=== PATIENT | female | born 1935 | race Caucasian/White ===

== ENCOUNTER 2024-02-06 12:19 | Outpatient (REF) | payer OTHER, SELFPAY ==
--- NOTE | ~2024-02-06 | CT_ITS ---
CT SINUS WITHOUT CONTRAST HISTORY: Vertigo, headache, evaluate sinuses TECHNIQUE: CT images of the paranasal sinuses were acquired without contrast. This CT examination was performed using dose optimization techniques as appropriate, variously including the following: *Automated exposure control *Adjustment of mA and/or kV according to patient size (this includes techniques or standardized protocols for targeted exams where dose is matched to indication/reason for exam; i.e. extremities or head) *Use of iterative reconstruction technique DLP: 87 COMPARISON: None available FINDINGS: NASAL CAVITY: Rightward deviation of the nasal septum with a rightward directed bony spur abutting and deforming the right inferior turbinate. The form plate appears intact. Relatively symmetric lateral lamellae and fovea ethmoidalis. FRONTAL SINUS: Right: Small in caliber. Mild mucosal thickening inferiorly. The outflow tract is patent. Left: Trace mucosal thickening inferiorly. The outflow tract is patent. ETHMOID AIR CELLS: Right: Mild scattered polypoid because of thickening. Left: Mild scattered polypoid mucosal thickening. SPHENOID SINUS: Right: Minimal mucosal thickening near the ostium which is patent. Left: Minimal mucosal thickening near the ostium which is narrowed but patent. MAXILLARY SINUS: Right: Mild mucosal thickening. The outflow tract is patent. Left: Essentially clear. The outflow tract is patent. OTHER: Bilateral intraocular lens replacements. Limited intracranial evaluation demonstrates generalized cerebral volume loss and chronic microvascular ischemic change. Underpneumatized left mastoid tip. There is no significant periodontal disease. CT/CT sinus wo IV con IMPRESSION: Mild scattered paranasal sinus polypoid mucosal thickening. No air-fluid levels to indicate acute sinusitis. Rightward deviation of the nasal septum with a bony spur abutting and deforming the right inferior turbinate.
== END 2024-02-06 12:20 | disposition home or self-care (01) ==
LOC: HO.CT 12:19
PROVIDERS: PCP Internal Medicine; Visit Provider Otolaryngology
DX: H81.4 Vertigo of central origin (principal); G44.219 Episodic tension-type headache, not intractable
CPT/HCPCS: 70486

== ENCOUNTER 2024-11-24 15:13 | Emergency (ER) | payer OTHER, SELFPAY ==
[2024-11-24] VITALS (8 sets, daily range): BP systolic 92–138; BP diastolic 50–70; PULSE 67–89; RESP 14–21; TEMP 36.4–36.7; O2SAT 94–98; BMI 24.5
--- NOTE | ~2024-11-24 | CT_ITS ---
EXAMINATION: CT HEAD WITHOUT CONTRAST CLINICAL INFORMATION: Syncope. COMPARISON: None available. TECHNIQUE: Contiguous axial imaging was performed from the skull base to vertex without intravenous administration of contrast. This CT examination was performed using dose optimization techniques as appropriate, variously including the following: *Automated exposure control *Adjustment of mA and/or kV according to patient size (this includes techniques or standardized protocols for targeted exams where dose is matched to indication/reason for exam; i.e. extremities or head) *Use of iterative reconstruction technique FINDINGS: There is no evidence of intracranial hemorrhage or extra-axial fluid collection. There is no mass effect, or edema. No CT evidence of acute territorial infarct. Ventricles, sulci, and cisterns are somewhat diffusely prominent, in keeping with age-related involutional changes. No hydrocephalus. No midline shift. Negative hyperdense MCA sign. Negative insular ribbon sign. Patchy periventricular and deep white matter hypoattenuation is consistent with mild to moderate small vessel ischemic changes. 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 Globes and orbital contents image normally. There are bilateral lens replacements. No extracranial soft tissue abnormalities. The paranasal sinuses, mastoid air cells, and tympanic cavities are normally aerated. No suspicious bony abnormalities. There are no acute fractures evident. CT/CT head/brain wo IV con IMPRESSION: No acute intracranial abnormalities. Chronic changes. Electronically signed by: Adalberto Zambrano MD 11/24/2024 04:42 PM [facility]
--- NOTE | ~2024-11-24 | XR_ITS ---
EXAMINATION: XR CHEST CLINICAL INFORMATION: syncope COMPARISON: None available. TECHNIQUE: Frontal view of the chest was obtained. FINDINGS: The cardiac, hilar, and mediastinal contours are normal. Aortic mural calcification. There is a moderate size retrocardiac hiatus hernia. Lungs demonstrate minimal linear type atelectasis left base. Lungs otherwise clear. No pneumothorax or effusion. No focal osseous or soft tissue abnormality. XR/XR chest 1V IMPRESSION: No active pulmonary disease. Retrocardiac hiatus hernia. Electronically signed by: Adalberto Zambrano MD 11/24/2024 04:16 PM EST
--- NOTE | 2024-11-24 15:23 | ECG_ITS ---
Test Reason : near syncopal episodde Blood Pressure : */* mmHG Vent. Rate : 75 BPM Atrial Rate : 75 BPM P-R Int : 218 ms QRS Dur : 96 ms QT Int : 408 ms P-R-T Axes : 64 51 18 degrees QTcB Int : 455 ms Sinus rhythm with 1st degree A-V block Nonspecific T wave abnormality Abnormal ECG When compared with ECG of 09-Sep-2004 11:47, Nonspecific T wave abnormality now evident in Anterior leads Referred By: Generic ED Physician Electronically Signed By: Zac Baron
[2024-11-24 15:44] LABS: Glucose, Whole Blood 158 mg/dL (60-115)
--- NOTE | 2024-11-24 15:49 | ED_ITS ---
HPI - Syncope General Chief Complaint: Syncope Stated Complaint: syncopal episode, feels weak, diaphoretic Time Seen by Provider: 11/24/24 15:38 Source: patient, family and EMS Mode of arrival: EMS Limitations: no limitations History of Present Illness ED Provider: DR. Garvin HPI narrative: 89-year-old female brought in by EMS for evaluation of near syncopal episode. Patient without with eating lunch at [employer] and glass of wine patient felt fine, then patient felt clammy, lightheadedness, blurry vision, patient needed to sit down before complete pass out, no CP, no SOB. Patient declined a complete pass out. Patient still feel spacey and disoriented. No blurry vision, no double vision, no weakness, no numbness. Report no decreased p.o. intake. Related Data Allergies Allergy/AdvReac Type Severity Reaction Status Date / Time Sulfa (Sulfonamide Allergy Unknown Unknown Verified 11/24/24 15:27 Antibiotics) Doxycycline (Rosacea) Allergy Unknown Unknown Uncoded 11/24/24 15:27 Review of Systems 2 Review of Systems: All other systems are reviewed and are negative Constitutional: Reports as per HPI and Reports no additional constitutional complaints Eyes: Reports as per HPI and Reports no additional eye complaints Reports system reviewed and no additional complaints, except as documented Cardiovascular: Reports as per HPI and Reports no additional cardiovascular complaints Respiratory: Reports as per HPI and Reports no additional respiratory complaints Gastrointestinal: Reports as per HPI and Reports no additional gastrointestinal complaints Genitourinary: Reports no additional female genitourinary complaints Musculoskeletal: Reports no additional musculoskeletal complaints Skin/Breast: Reports system reviewed and no additional complaints, except as docu Psychiatric: Reports no additional psychiatric complaints Endocrine: Reports no additional endocrine complaints Hematologic/Lymphatic: Reports no additional hematologic/lymphatic complaints Allergic/Immunologic: Reports no additional allergic/immunologic complaints Reports system reviewed and no additional complaints, except as documented and Reports Abnormal speech present [facility] Social History Social History Advance Directives: No Advance Directives Information Provided: No Do you have a plan to hurt others: No Plan Physical Exam 2 Vital Signs: Vital Signs: Last Vital Signs Temp 98.0 F 11/24/24 19:24 Pulse 67 11/24/24 19:24 Resp 16 11/24/24 19:24 BP 120/66 11/24/24 19:24 Pulse Ox 98 11/24/24 19:24 O2 Del Method Room Air 11/24/24 19:24 BMI result Body Mass Index 24.5 Vital signs have been reviewed and appear to be correct. Blood pressure elevated. Heart rate normal. Respiratory rate normal. Temperature normal. Oxygen saturation normal. Appearance: Alert. Oriented X3. No acute distress. Head: Normal external exam. Normocephalic. Atraumatic. No [place] signs noted. No raccoon eyes noted Eyes: PERRLA. EOMI. Conjunctiva and sclera normal. Eyelids normal. ENT: TM's Normal. Pharynx normal. Uvula midline. Moist mucous membranes. No trismus noted. No drooling noted. No muffled voice noted. Neck: Normal inspection. Neck supple. FROM. No adenopathy. Thyroid Normal. No meningeal signs. No neck mass noted. CVS: Normal heart rate and rhythm. Heart sound normal. No murmurs noted. Pulses normal throughout. Respiratory: No respiratory distress. Painless inspiration. Breath sounds normal. No wheezes/rales/rhonchi noted. Chest nontender. No accessory muscle usage noted or decreased air movement noted. Abdomen: Soft and nontender. Bowel sounds normal in all 4 quadrants. No distention noted. No organomegaly noted. No visible injury noted. Back: No CVA tenderness. Full range of motion noted. Skin: Skin warm and dry. Normal skin color. Normal skin turgor. No rashes/lesions/lacerations noted. Extremities: No lower extremity edema. Extremities exhibit normal range of motion. Extremities nontender. Neuro: Mental status: Normal attention, orientation, memory, and affect. Cranial nerves: Pupils are equal, round and reactive to light, EOMI, visual [place] are fall, face is symmetric, facial sensations are normal. Motor examination normal muscle tone, strength to 4 extremities. DTR are +2, planter's are flexor. Sensory exam; normal coordination, no ataxia, gait stable. Cerebellar exam: [id number] and [id number] is normal. Extrapyramidal system: No tremors, no rigidity with normal facial expressions. Pronator drift not present Course Reevaluation(s) Reevaluation #1: moderately orthostatic, patient feels much better and back to her normal baseline after was given a L of fluid in the emergency department, unremarkable labs, unremarkable EKG, patient was instructed to follow-up with her PCP and to drink plenty of fluids. Patient been in the ED for about 6 hours initially had borderline low blood pressure after fluid blood pressure is been better, neuro exam is intact, GCS of 15, head CT is unremarkable. Time: 20:12 Medications Administered Discontinued Medications Generic Name Dose Route Start Last Admin Trade Name Freq PRN Reason Stop Dose Admin Sodium Chloride 1,000 mls @ 999 mls/hr 11/24/24 18:36 11/24/24 18:47 Ns IV 11/24/24 19:36 999 mls/hr .Q1H1M ONE Administration Medical Decision Making Differential Diagnosis Differential Diagnoses: The differential diagnosis associated with the presentation includes ( ACS, intracranial bleed, dehydration, orthostatic hypotension, dysrhythmia, electrolyte derangement, severe anemia , pneumonia, pneumothorax, pleural effusion, intracranial bleed, ischemic stroke.) Admission/Observation Consideration of admission/observation: Escalation of care including admission/observation considered Lab Data MDM Lab Attestation statement: I reviewed the patient's lab results. 11/24/24 16:10 11/24/24 16:10 Labs: Lab Results 11/24/24 11/24/24 11/24/24 Range/Units 15:25 16:10 18:43 WBC 6.9 (4.8-10.8) X10*3/uL RBC 3.61 L (4.20-5.50) X10*6/uL Hgb 11.0 L (12.0-16.0) g/dl Hct 33.1 L (37.0-47.0) % MCV 91.7 (80.0-98.0) fL MCH 30.5 (27.0-33.0) pg MCHC 33.2 (31.0-35.0) g/dl RDW 13.8 (11.0-16.0) % Plt Count 229 (160-400) X10*3/uL MPV 9.2 L (9.4-12.3) fL Immature Gran % (Auto) 0.4 (0.0-0.4) % Neut % (Auto) 74.3 H (45-73) % Lymph % (Auto) 17.8 L (20-40) % [place] % (Auto) 6.0 (2-11) % Eos % (Auto) 1.2 (0-4) % Baso % (Auto) 0.3 (0-2) % Lymph # (Auto) 1.2 (1.2-4.9) X10*3/uL [place] # (Auto) 0.4 (0.1-1.2) X10*3/uL Eos # (Auto) 0.1 (0.0-0.4) X10*3/uL Baso # (Auto) 0.0 (0.0-0.2) X10*3/uL Abs Immat Gran (auto) 0.03 (0.00-0.03) X10*3/uL Absolute Neuts (auto) 5.1 (2.0-8.3) x10*3/uL Absolute Nucleated RBC 0.000 (0.0-0.012) X10*3/uL Nucleated RBC % (auto) 0.0 (0.0-0.2) /100WBC Sodium 135 (135-145) mmol/L Potassium 3.8 (3.3-5.1) mmol/L Chloride 105 (96-108) mmol/L Carbon Dioxide 22 (22-29) mmol/L Anion Gap 12 (12-20) BUN 13 (9-16) mg/dL Creatinine 0.75 (0.5-1.4) mg/dL Estim Creat Clear Calc 48.5 Estimated GFR > 60 POC Glucose 158 H (60-115) mg/dL Random Glucose 103 (60-115) mg/dL Calcium 8.5 (8.4-10.2) mg/dL Total Bilirubin 0.3 (0.0-1.0) mg/dL Direct Bilirubin 0.1 (0.0-0.5) mg/dL AST 29 (5-31) U/L ALT 24 (0-31) U/L Alkaline Phosphatase 62 (39-117) U/L Troponin I High Sens < 2.7 < 2.7 (<3.5-17.0) ng/L B-Natriuretic Peptide 142 H (<100) pg/mL Total Protein 6.8 (6.5-8.0) g/dL Albumin 3.4 L (3.5-5.0) g/dL Lipase 16 (8-78) U/L Urine Color Yellow Urine Appearance Clear Urine pH 6.5 (5.0-9.0) Ur Specific [place] 1.015 (1.005-1.025) Urine Protein 30 (1+) H (Neg-Trace) mg/dL Urine Glucose (UA) Negative (Negative) mg/dL Urine Ketones Negative (Negative) mg/dL Urine Blood Small (1+) H (Negative) Urine Nitrite Negative (Negative) Ur Leukocyte Esterase Negative (Negative) Urine RBC 6-10 H (0-2) /HPF Urine WBC 0-5 (0-5) /HPF Ur Squamous Epith Cells 0-2 (0-2) /HPF Urine Bacteria None Seen (None Seen) Hyaline Casts 0-2 (0-2) /LPF Influenza Type A (PCR) NEGATIVE (Negative) Influenza Type B (PCR) NEGATIVE (Negative) RSV RNA Qual (PCR) NEGATIVE (Negative) SARS-CoV-2 RNA (RT-PCR) NEGATIVE (Negative) Independent Interpretation I performed an independent interpretation of an: Plain X-Ray ( Chest: No acute intrathoracic pathology.) and CT Scan ( Head: No acute intracranial abnormalities.) Radiology Impression Discussion of test interpretation with radiology: I have reviewed the radiologist's reading. Discharge Plan Discharge Clinical Impression: Vasovagal syncope, Dehydration Patient Disposition: Home, Self-Care Instructions: Dehydration (ED) Additional Instructions: Drink plenty fluids Referrals: Samaria Childs NP [Primary Care Provider] - Print Language: Kazakh
[2024-11-24 16:16] LABS: MANUAL DIFF FLAG NO
[2024-11-24 16:18] LABS: Basophils Percent Auto 0.3 % (0-2); Eosinophils Absolute Auto 0.1 X10*3/uL (0.0-0.4); Eosinophils Percent Auto 1.2 % (0-4); Hematocrit 33.1 % (37.0-47.0); Imm Gran Abs Auto 0.03 X10*3/uL (0.00-0.03); Imm Gran Pct Auto 0.4 % (0.0-0.4); Lymphocytes Absolute Auto 1.2 X10*3/uL (1.2-4.9); Lymphocytes Percent Auto 17.8 % (20-40); Mean Corpuscular HGB Conc 33.2 g/dl (31.0-35.0); Mean Corpuscular Hemoglobin 30.5 pg (27.0-33.0); Mean Corpuscular Volume 91.7 fL (80.0-98.0); Mean Platelet Volume 9.2 fL (9.4-12.3); Monocytes Absolute Auto 0.4 X10*3/uL (0.1-1.2); Neutrophils Absolute Auto 5.1 x10*3/uL (2.0-8.3); Neutrophils Percent Auto 74.3 % (45-73); Platelet Count 229 X10*3/uL (160-400); Red Blood Count 3.61 X10*6/uL (4.20-5.50); Red Cell Distribution Width 13.8 % (11.0-16.0); White Blood Count 6.9 X10*3/uL (4.8-10.8)
[2024-11-24 16:40] LABS: Alanine Aminotransferase 24 U/L (0-31); Albumin Level 3.4 g/dL (3.5-5.0); Anion Gap 12 (12-20); Aspartate Amino Transferase 29 U/L (5-31); Bilirubin Direct 0.1 mg/dL (0.0-0.5); Bilirubin Total 0.3 mg/dL (0.0-1.0); Blood Urea Nitrogen 13 mg/dL (9-16); Calcium 8.5 mg/dL (8.4-10.2); Carbon Dioxide 22 mmol/L (22-29); Chloride 105 mmol/L (96-108); Creatinine Clr Calc Pharmacy 48.5; Estimated Glomerular Filt Rate > 60; Glucose Random 103 mg/dL (60-115); Lipase 16 U/L (8-78); Potassium 3.8 mmol/L (3.3-5.1); Sodium 135 mmol/L (135-145); Total Protein 6.8 g/dL (6.5-8.0)
[2024-11-24 16:41] LABS: B Type Natriuretic Peptide 142 pg/mL (<100); Troponin-I High Sensitivity < 2.7 ng/L (<3.5-17.0)
[2024-11-24 16:54] LABS: Influenza A PCR NEGATIVE (Negative); Influenza B PCR NEGATIVE (Negative); Resp Syncy Virus RNA Qual PCR NEGATIVE (Negative); SARS COV2 PCR INHOUSE NEGATIVE (Negative)
[2024-11-24 17:12] LABS: Alkaline Phosphatase 62 U/L (39-117)
[2024-11-24] MEDS: 0.9 % Sodium Chloride 1,000 ML 999 ML IV (18:47)
[2024-11-24 18:51] LABS: Appearance Urine Clear; Color Urine Yellow; Glucose Urine UA Negative (Negative); Leukocyte Esterase Urine Negative (Negative); Nitrite Urine Negative (Negative); PH 6.5 (5.0-9.0); Specific Gravity - Urine 1.015 (1.005-1.025); UMIC TRIGGER UACC YES; Urine Blood Small (1+) (Negative); Urine Ketones Negative (Negative); Urine Protein 30 (1+) mg/dL (Neg-Trace)
[2024-11-24 18:54] LABS: Bacteria Urine None Seen (None Seen); Hyaline Casts Urine 0-2 /LPF (0-2); Squamous Epithelial Cell Urine 0-2 /HPF (0-2); WBC Urine 0-5 /HPF (0-5)
[2024-11-24 19:13] LABS: Troponin-I High Sensitivity < 2.7 ng/L (<3.5-17.0)
--- OUTSIDE RECORDS SUMMARY | 2024-11-24 19:56 | XMS_ITS | Clinical Summary ---
Author Organization 175 [facility] Address 175 [place] [address] Phone Care Team Providers Care Seat Cover Maker Name Role Phone China Bal MD Primary Care Prov ider Allergies Active Allergy Reactions Criticality Noted Date Comments Doxycycline Monohydrate Nausea And Vomiting 03/2005 Sulfa (Sulfonamide Antibiotics) Nausea And Vomiting 08/06/2005 Sulfa Drugs Sulfamethoxazole-Trimet hoprim Nausea And Vomiting 03/23/2011 Bactrim [Na Benzoate-sulfametho xazole-trimethoprim ] Medications acetaminophen (TYLENOL) 500 mg tablet Take 1 tablet by mouth every 8 hours as needed for Pain. 02/10/20 21 Active calcium carbonate 1,500 mg (600 mg elemental calcium) tablet Take 600 mg by mouth 2 times daily (with meals). Active cholecalcifero l (VITAMIN D-3) 25 mcg (1,000 unit) capsule 1 (one) time each day. Cholecalciferol (VITAMIN D-[address] OR) Take 1,000 Units by mouth. Active esomeprazole (NexIUM) [address] capsule Take 1 Capsule by mouth every morning (before breakfast). 07/30/20 24 Active FLUoxetine (PROzac) 10 mg capsule TAKE 1 CAPSULE DAILY 07/30/20 24 Active levothyroxine (SYNTHROID, LEVOTHROID) 25 mcg tablet Take 1 Tablet by mouth daily. 07/30/20 Active meclizine (ANTIVERT) 12.5 mg tablet TAKE 1 TABLET BY MOUTH EVERY 12 HOURS 07/14/20 24 Active albuterol HFA (PROAIR HFA ; PROVENTIL HFA ; VENTOLIN HFA) 90 mcg/actuation inhaler Inhale 2 puffs by mouth every 6 (six) hours if needed for wheezing. Active Active Problems Problem Noted Date Diagnosed Date Groin pain, chronic, left 09/08/2024 Reducible left inguinal hernia 09/08/2024 Contusion of lower leg 03/26/2024 Fibromyalgia 09/03/2017 Osteopenia 07/12/2015 Hypothyroid 08/21/2010 Lactose intolerance 03/15/2008 Mixed hyperlipidemia 03/15/2008 Overview (08/25/2024): Not on meds as of September 2020 Heartburn 07/22/2007 Encounters Date Type Department Care Team Description 11/12/2024 10:30 AM EST Consult Orthopedic Surgery [facility] [address] [facility] [address] [place] [phone] Cristal Zepeda NP Primary osteoarthritis of left hip (Primary Dx); Groin pain, chronic, left 10/13/2024 10:45 AM EST Office Visit General Surgery [facility] 175 [facility] [address] [place] [phone] Paddy Delcid MD Reducible left inguinal hernia (Primary Dx); Groin pain, chronic, left 09/28/2024 3:59 PM EST Anesthesia Event [facility] OR [address] [place] [phone] Codey Bryan MD Spencer, Mark A, MD 09/28/2024 1:45 PM EST - 09/28/2024 3:00 PM EST Surgery [facility] OR [address] [place] [phone] Paddy Delcid MD REPAIR INGUINAL HERNIA LEFT [19900 (CPT??)] 09/28/2024 11:43 AM EST - 09/28/2024 6:44 PM EST Hospital Encounter [facility] [place] [address] [place] [phone] Paddy Delcid MD Discharge Disposition: Home or Self Care 09/21/2024 Telephone General Surgery - [place] [address] [facility] [address] [place] [phone] Paddy Delcid MD Prior Authorization (09/28/24 Dr. Paddy Delcid) 09/08/2024 11:00 AM EST Consult General Surgery - [place] [address] [facility] [address] [place] [phone] Paddy Delcid MD Groin pain, chronic, left (Primary Dx); Reducible left inguinal hernia 09/03/2024 12:34 PM EST - 09/03/2024 11:59 PM EST Hospital Encounter Radiology Department [address] [phone] Encounter for screening mammogram for breast cancer Discharge Disposition: Home or Self Care from Last 3 Months Immunizations Name Administration Dates Next Due Influenza trivalent, 0.5mL ( Fluad) 65yo and older 07/30/2024,07/23/2023,06/12/2021,07/21,07/08/2018,07/24/2017,07/04/2016 Influenza trivalent, 0.5mL, preservative free (Fluarix; FluLaval; Fluzone) ages 6mo and older (Afluria) 3 years and older 06/20/2020,06/27/2015,07/27/2014,07/13,06/10/2012,06/30/2011,07/13/2010 ,07/22/2007,10/18/2006,08/04/2005 Influenza, Unspecified 07/04/2022,2019,07/08/2018,07/04 Pfizer SARS-CoV-2 COVID-19, mRNA, LNP-S, preservative free 06/24/2021 Pneumococcal conjugate 13 va lent (Prevnar 13, PCV13) 2mo and older 12/23/2014 Pneumococcal polysaccharide 23 valent (Pneumovax 23) 2yo and older 02/14/2009 Td Tetanus diptheria (Tdvax) 7yo and older 02/14/2009 Surgical History Surgery Date Site/Laterality Comments CATARACT EXTRACTION 2005 PROCEDURE: HISTORICAL CATARACT REMOVAL; COMMENT: bilateral ANKLE FRACTURE SURGERY 2004 Left PROCEDURE: KS OPEN TREATMENT MEDIAL MALLEOLUS FRACTURE; COMMENT: pinned APPENDECTOMY PROCEDURE: KS APPENDECTOMY OTHER SURGICAL HISTORY PROCEDURE: HISTORY OTHER; COMMENT: hand surgery ear surg OTHER SURGICAL HISTORY PROCEDURE: KS TOTAL ABDOMINAL HYSTERECT W/WO RMVL TUBE OVARY; COMMENT: ovaries also removed OTHER SURGICAL HISTORY 1996 PROCEDURE: HISTORICAL MELANOMA; COMMENT: 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) OTHER SURGICAL HISTORY PROCEDURE: HISTORY OTHER; COMMENT: left shoulder fracture COLONOSCOPY 2015 PROCEDURE: HISTORICAL COLONOSCOPY; COMMENT: neg dr egan UPPER GASTROINTESTINAL ENDOSCOPY 2015 PROCEDURE: KS UPPER GI ENDOSCOPY PERFORMED; COMMENT: Gaby egan OTHER SURGICAL HISTORY PROCEDURE: HISTORICAL CA BASAL CELL; COMMENT: BCC 10/16 right shoulder (nodular) 03/10 left pretibial (nodular) 09/05 left pretibial area (superficial) HERNIA REPAIR HYSTERECTOMY Medical History Medical History Date Comments Heartburn 07/22/2007 DX:Heartburn Lactose intolerance 03/15/2008 DX:Lactose i ntolerance Fracture, humerus closed 2004 DX:Frac ture, humerus closed; COMMENT: left Osteopenia 07/12/2015 DX:Osteopenia Basal cell carcinoma of skin 09/24/2007 DX: Basal cell carcinoma of skin; COMMENT: BCC 10/16 right shoulder (nodular) 03/10 left pretibial (nodular) 09/05 left pretibial area (superficial) History of malignant melanoma of skin 03/12/2006 DX:History of malignant melanoma of skin; COMMENT: 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), followed by [facility] History of actinic keratoses 05/23/2016 DX: History of actinic keratoses; COMMENT: Actinic keratosis 05/15 left leg Hypothyroidism GERD (gastroesophageal reflux disease) HL (hearing loss) Asthma Family History Medical History Relation Name Comments Breast cancer Neg Hx Relation Name Status Comments Brother (Age 51) brain canc er Father (Age 69) hodgkins Mother (Age 81) colon canc er Social History Tobacco Use Types Packs/Day Years Used Date Smoking Tobacco: Former Cigarettes Q uit: 09/30/1979 Smokeless Tobacco: Never Alcohol Use Standard Drinks/Week Comments Yes 0 (1 standard drink = 0.6 oz pur e alcohol) SOCIAL Interpersonal Safety Answer Date Record ed Physical Abuse 09/28/2024 Verbal Abuse 09/28/2024 Comments No Sex and Gender Information Value Date Recorded Sex Assigned at Unknown 09/14/2024 3:53 PM EST Legal Sex Female 5:26 AM EST Gender Identity Female 09/14/2024 3:53 PM EST Sexual Orientation Straight 09/14/2024 3: 53 PM EST Obstetrics History Para Term AB IAB SAB Ectopic Multiple Livin g Live Births 2 2 2 2 Date Outcome GA Total Labor Labor/2nd/3rd Weight Sex Type Anes PTL Nancy A1 A5 Name Clin Term Term Last Filed Vital Signs Vital Sign Reading Time Taken Comments Blood Pressure 133/81 10/13/2024 10:31 AM EST Pulse 77 10/13/2024 10:31 AM EST Temperature 36.5 ??C (97.7 ??F) 09/28/2024 6:11 PM ES T Respiratory Rate 14 09/28/2024 6:11 PM EST Oxygen Saturation 96% 09/28/2024 6:11 PM EST Inhaled Oxygen Concentration - - Weight 68.9 kg (152 lb) 11/12/2024 10:20 AM EST Height 170.2 cm (5' 7 ) 11/12/2024 10:20 AM EST Body Mass Index 23.81 11/12/2024 10:20 AM EST Plan of Treatment Upcoming Encounters Date Type Department Care Team (Late st Contact Info) Description 01/19/2025 10:15 AM EDT Office Visit General Surgery [facility] [address] [phone] Paddy Delcid MD [address] [phone] 01/28/2025 11:00 AM EDT Office Visit Adult Medicine [facility] [address] [place] [phone] China Bal MD [address] [place] [phone] 06/07/2025 7:45 AM EDT Ancillary Procedure [facility] [address] [phone] Health Maintenance Due Date Last Done Comments RSV Immunization Patients 60+ Years Old (1 - 1-dose 75+ series) 2011 DTaP,Tdap,and Td Vaccines (2 - Td or Tdap) 02/14/2019 02/14/2009 Medicare Annual Wellness Visit 09/08/2022 Social Influencers of Health Screening 09/08/2022 COVID-19 Vaccine ( season) 2024 08/14/2023, 07/04/2022, 12/30/2021, Additional history exists Zoster Vaccines (2 of 2) 10/01/2024 08/06/2024 Falls Risk Assessment 01/22/2025 01/23/2024 Depression Screening 07/30/2025 07/30/2024 Cholesterol Screening (Lipid Panel) 01/13/2029 01/14/2024 Osteoporosis Screening (Bone Density Screening) 07/21/2034 07/21/2024, 07/21/2024, 06/06/2021 Pneumococcal Vaccine: 50+ Years Completed 12/23/2014, 02/14/2009 Influenza Vaccine Completed 07/30/2024, , 07/04/2022, Additional history exists HIB Vaccines Aged Out No longer eligi ble based on patient's age to complete this topic HPV Vaccines Aged Out No longer eligi ble based on patient's age to complete this topic Hepatitis A Vaccines Aged Out No long er eligible based on patient's age to complete this topic Hepatitis B Vaccines Aged Out No long er eligible based on patient's age to complete this topic IPV Vaccines Aged Out No longer eligi ble based on patient's age to complete this topic MMR Vaccines Aged Out No longer eligi ble based on patient's age to complete this topic Meningococcal ACWY Vaccine Aged Out N o longer eligible based on patient's age to complete this topic Meningococcal B Vacine Aged Out No lo nger eligible based on patient's age to complete this topic RSV Immunization Patients Under 20 months Aged Out No longer eligible based on patient's age to complete this topic Varicella Vaccines Aged Out No longer eligible based on patient's age to complete this topic Medical Devices Implanted Type Area Sr. Payroll Processor Device Identifier Shelf Expiration Date Model / Serial / Lot Opthalmology Implants Opthalmology Implants Bilateral : Eye System Hernia Ultrapro Med - Sn/A - [id number] Implanted:Qty: 1 on 09/28/2024 by Paddy Delcid MD at [facility] Surgical Mesh Sling Implants Left: Abdomen [employer] 09/29/2025 [facility] / N/A / [id number] Procedures Procedure Name Priority Date/Time Associated Diagnosis Comments XR HIP 2-3 VIEWS LEFT Routine 11/12/2024 10:20 AM EST Groin pain, chronic, left TH AN LMA(NO CHARGE) Routine 09/28/2024 4:23 PM EST KS REPR INIT ING HERNIA 5Y OR OLDER REDUCIBLE 09/28/2024 4:01 PM EST Reducible left inguinal hernia Case Notes MESH Special Needs 45 MINS REQ'D MG MAMMO DIGITAL SCREENING W TYLOR BILAT Routine 09/03/2024 1:11 PM EST Encounter for screening mammogram for breast cancer DEPRESSION SCREENING Routine 07/30/2024 DXA BONE DENSITY STUDY 1+ SITS AXIAL SKEL Routine 07/21/2024 1:58 PM EDT Encounter for general adult medical examination without abnormal findings FALLS RISK ASSESSMENT Routine 01/23/2024 LIPID PANEL Routine 01/14/2024 from Last 3 Months or Most Recently Relevant to Health Maintenance Results * XR Hip 2-3 Views Left (11/12/2024 10:20 AM EST) Anatomical Region Laterality Modality Lower Extremities, Hip Left Computed Radiography Narrative 11/12/2024 5:35 PM EST Date of Visit: 11/12/2024 Reason for visit: Left hip pain Views: A/P pelvis, A/P hip, Frog view left hip Findings: Symmetrical alignment femoral head in acetabulum. ??Mild narrowing through the femoral acetabular joint space. No significant osteophyte formation nor calcifications noted. No acute findings Impression: Intact hip with mild degenerative changes Cristal Zepeda TRAVELING CONSTRUCTION SUPERINTENDENT IMG XR PROCEDURES Final Result * TH AN LMA(NO CHARGE) (09/28/2024 4:23 PM EST) Shraddha Jordan CRNA - 09/28/2024 4:23 PM EST Shraddha Flores CRNA ? 09/28/2024 ??4:24 PM General Information and Staff Patient location during procedure: OR Resident/LINE MAINTENANCE TECHNICIAN: Shraddha Flores CRNA Performed: resident/LINE MAINTENANCE TECHNICIAN/CAA Performed by: Shraddha Flores CRNA Authorized by: Codey Bryan MD ?? Intubation Additional Comments Smooth induction, airway placement verified, airway secured. Airway not difficult Urgency: elective Final Airway Details Number of attempts at approach: 1 Ventilation between attempts: none Number of other approaches attempted: 0Final airway type: LMA Indications and Patient Condition Indications for airway management: anesthesia and airway protection Spontaneous ventilation: present Sedation level: Yes Preoxygenated: yes Soft Tissue Damage: No Dentition Unchanged: Yes Patient position: neutral MILS maintained throughout Mask difficulty assessment: 0 - not attempted us Codey Bryan MD ANESTHESIA ORDERABLES Final Re sult * MG Mammo Digital Screening w Tylor bilat (09/03/2024 1:11 PM EST) Anatomical Region Laterality Modality Breast Bilateral Mammography 09/03/2024 2:33 PM EST Impressions 09/03/2024 2:46 PM EST BILATERAL BREASTS: Negative, no evidence of malignancy. Normal interval follow- up is recommended in 12 months. BREAST DENSITY: C - The breasts are heterogeneously dense which may obscure small masses. BI-RADS CATEGORY: 1 - NEGATIVE RECOMMENDATION: Screening bilateral mammogram is recommended in 1 year. Mammo Location: [facility], [address] [place] [address], [phone], . -------- FINAL REPORT -------- Dictated By: Radha Krishna Dictated Date: 09/03/2024 14:33 ET Assigned Physician: Radha Krishna Reviewed and Electronically Signed By: Radha Krishna Signed Date: 09/03/2024 14:46 ET Workstation ID: [id number] Transcribed By: Self Edit Transcribed Date: 09/03/2024 14:34 ET Narrative 09/03/2024 2:46 PM EST STUDY: Bilateral screening mammography with tomosynthesis and CAD TECHNIQUE: Bilateral full-field digital screening mammography is obtained and read in conjunction with computer-aided detection. ??Tomosynthesis as well as 2-D C view imaging were obtained. ?? COMPARISON: Comparison made to multiple prior, most recent August 19, 2023, and most remote June 01, 2014. BILATERAL BREASTS: No significant masses, suspicious calcifications or other abnormalities are seen. Procedure Note Radha Krishna MD - 09/03/2024 STUDY: Bilateral screening mammography with tomosynthesis and CAD TECHNIQUE: Bilateral full-field digital screening mammography is obtainedand read in conjunction with computer-aided detection. Tomosynthesis aswell as 2-D C view imaging were obtained. COMPARISON: Comparison made to multiple prior, most recent July, and most remote June 01, 2014. BILATERAL BREASTS: No significant masses, suspicious calcifications orother abnormalities are seen. IMPRESSION: BILATERAL BREASTS: Negative, no evidence of malignancy. Normal intervalfollow-up is recommended in 12 months. BREAST DENSITY: C - The breasts are heterogeneously dense which mayobscure small masses. BI-RADS CATEGORY: 1 - NEGATIVE RECOMMENDATION: Screening bilateral mammogram is recommended in 1 year. Mammo Location: [facility], [address] [place] [address], [phone], . -------- FINAL REPORT -------- Dictated By: Radha Krishna Dictated Date: 09/03/2024 14:33 ET Assigned Physician: Radha Krishna Reviewed and Electronically Signed By: Radha Krishna Signed Date: 09/03/2024 14:46 ET Workstation ID: [id number] Transcribed By: Self Edit Transcribed Date: 09/03/2024 14:34 ET us China Bal MD IMG BI PROCEDURES Final Result * Depression Screening (07/30/2024) Depression Screening abstracted us Historical Provider HEALTH MAINTENANCE Final Result * DXA BONE DENSITY STUDY 1+ SITS AXIAL SKEL (07/21/2024 1:58 PM EDT) Anatomical Region Laterality Modality Bone Densitometr y 07/24/2023 7:43 AM EDT Narrative 07/21/2024 7:16 PM EDT STUDY: ??DUAL ENERGY X-RAY ABSORPTIOMETRY / DXA REASON FOR EXAM: ?? Female, 89 years old ??osteoporosis TECHNIQUE: ?? Bone Mineral Density (BMD) measurements of the lumbar spine and left hip were obtained using [employer] Discovery W (S/N [id number]). ?? COMPARISON: None ?? FINDINGS: L1-L4 BMD: 0.853 g/cm2 L1-L4 T score: -1.8. ??This corresponds to osteopenia. This represents a 2.4 % increase in bone density compared with prior exam from June 06, 2021. Left femoral neck BMD: 0.577 g/cm2 Left femoral neck T score: -2.5. ??This corresponds to osteoporosis. Left total hip BMD: 0.814 g/cm2 Left total hip T score: -1.0. ??This corresponds to Normal bone density. This represents a 1.7 % increase in bone density compared with prior exam from June 06, 2021. * - Indicates a statistically significant change. IMPRESSION: IMPRESSION: Osteoporosis Reference Information: The T-score is the number of standard deviations above or below the standard which is normal for young adults at their peak bone mineral density. The World Health Organization (WHO) interprets the T-scores as follows: At or above ??-1 SD ?Normal bone density Between -1 and -2.5 SD ??Osteopenia At or below -2.5 SD ?Osteoporosis Procedure Note Radha Krishna MD - 07/28/2024 STUDY: DUAL ENERGY X-RAY ABSORPTIOMETRY / DXA REASON FOR EXAM: Female, 89 years old osteoporosis TECHNIQUE: Bone Mineral Density (BMD) measurements of the lumbar spineand left hip were obtained using [employer] W (S/N [id number]). COMPARISON: None FINDINGS: L1-L4 BMD: 0.853 g/cm2 L1-L4 T score: -1.8. This corresponds to osteopenia. This represents a 2.4 % increase in bone density compared with prior examfrom June 06, 2021. Left femoral neck BMD: 0.577 g/cm2 Left femoral neck T score: -2.5. This corresponds to osteoporosis. Left total hip BMD: 0.814 g/cm2 Left total hip T score: -1.0. This corresponds to Normal bone density. This represents a 1.7 % increase in bone density compared with prior examfrom June 06, 2021. * - Indicates a statistically significant change. IMPRESSION: IMPRESSION: Osteoporosis Reference Information: The T-score is the number of standard deviations above or below thestandard which is normal for young adults at their peak bone mineral density. The World HealthOrganization (WHO) interprets the T-scores as follows: At or above -1 SD Normal bone density Between -1 and -2.5 SD Osteopenia At or below -2.5 SD Osteoporosis China Bal MD [facility] [place]XA PROCEDURES Final Result * Falls Risk Assessment (01/23/2024) [facility] Falls Risk Assessment abstracted us Historical Provider HEALTH MAINTENANCE Final Result * (ABNORMAL) Lipid panel (01/14/2024) LDL/HDL Ratio 3 0 - 4 Triglycerides 64 0 - 150 mg/dL Cholesterol 200 0 - 200 mg/dL HDL 77 >=40 mg/dL LDL Cholesterol 111(A) 0 - 100 mg/dL Blood Venous blood specimen / Unknown us Historical Provider LAB BLOOD ORDERABLES Linh l Result from Last 3 Months or Most Recently Relevant to Health Maintenance Insurance [employer] MEDICARE ADVANTAGE Advance Directives * Full Code - Default (Latest Code Status on File) Date Activated Date Inactivated Comments 09/28/2024 12:16 PM 09/28/2024 8:44 PM This is o rder is used when code status has not been discussed with the patient, or code status is otherwise unknown/unconfirmed To update the patient's code status, place a code status order. Do not modify or discontinue any currently active code status orders. Care Teams Seat Cover Maker Relationship Specialty Start Date End Date China Bal MD [address] [place] [phone] PCP - General Internal Medicine 07/16/22
--- OUTSIDE RECORDS SUMMARY | 2024-11-24 19:56 | XMS_ITS | Patient Health Record ---
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 Problem Contusion of lower leg (25069917) Contusion of lower leg (924.10) 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
--- OUTSIDE RECORDS SUMMARY | 2024-11-24 19:56 | XMS_ITS | Encounter Summary ---
Author Organization [facility] Address [address] [place] [address] Care Team Providers Care Family Nurse Practitioner Name Role Phone China Bal MD Primary Care Prov ider Reason for Visit * Reason Comments Consult Pain * Consultation (Routine) - Closed Specialty Diagnoses / Procedures Referred By Contac t Referred To Contact Orthopaedics / Orthopaedic Surgery Diagnoses Groin pain, chronic, left Paddy Delcid MD [address] [facility] [address] [place] [address] Phone: tel: fax: Cristal Zepeda NP [address] [address] Phone: tel: fax: Referral ID Status Reason Start Date Expiration Date V isits Requested Visits Authorized [id number] Closed Specialty Services Required 09/08/2024 09/08/2025 1 1 Encounter Details Date Type Department Care Team (Late st Contact Info) Description 11/12/2024 10:30 AM EST Consult Orthopedic Surgery - [place] 250 175 [facility] [address] [place] [address] Cristal Zepeda NP [address] [address] Primary osteoarthritis of left hip (Primary Dx); Groin pain, chronic, left Social History Tobacco Use Types Packs/Day Years [...] Orientation Straight 09/14/2024 3: 53 PM EST documented as of this encounter Last Filed Vital Signs Vital Sign Reading Time Taken Comments Blood Pressure - - Pulse - - Temperature - - Respiratory Rate - - Oxygen Saturation - - Inhaled Oxygen Concentration - - Weight 68.9 kg (152 lb) 11/12/2024 10:20 AM EST Height 170.2 cm (5' 7 ) 11/12/2024 10:20 AM EST Body Mass Index 23.81 11/12/2024 10:20 AM EST documented in this encounter Progress Notes * Cristal Zepeda NP - 11/12/2024 10:30 AM EST Date: 11/12/24 CHIEF COMPLAINT: Consult and Pain of the Left Hip had concerns including Consult and Pain of the Left Hip. IDENTIFIER: Alicia Glover is a 89 y.o. old adult. Primary Care Physician: China Archuleta MD Floorhand: None HPI Alicia Glover is a 89 y.o. year old female here today for evaluation of the left hip/groin pain. Patient actually reports 0 pain at present. She had had chronic groin pain for some time, followed by general surgery with recent left inguinal hernia repair on 09/01/2024. She actually found this essentially resolved all of the pain she was experiencing in her left groin. She denies any buckling or giving way through the left hip. No difficulty ambulating. No radiating pain, numbness, tingling through the left lower extremity. X-rays show mild DJD. ROS: 10 point ROS was reviewed with patient, pertinent positive and negative results are noted in the HPI. Patient Active Problem List Diagnosis Contusion of lower leg Fibromyalgia Heartburn Hypothyroid Lactose intolerance Mixed hyperlipidemia Osteopenia Groin pain, chronic, left Reducible left inguinal hernia Past Surgical History: Procedure Laterality Date ANKLE FRACTURE SURGERY Left 2004 PROCEDURE: NC OPEN TREATMENT MEDIAL MALLEOLUS FRACTURE; COMMENT: pinned APPENDECTOMY PROCEDURE: NC APPENDECTOMY CATARACT EXTRACTION 2005 PROCEDURE: HISTORICAL CATARACT REMOVAL; COMMENT: bilateral COLONOSCOPY 2015 PROCEDURE: HISTORICAL COLONOSCOPY; COMMENT: neg dr egan HERNIA REPAIR HYSTERECTOMY OTHER SURGICAL HISTORY PROCEDURE: HISTORY OTHER; COMMENT: hand surgery ear surg OTHER SURGICAL HISTORY PROCEDURE: NC TOTAL ABDOMINAL HYSTERECT W/WO RMVL TUBE OVARY; COMMENT: ovaries also removed OTHER SURGICAL HISTORY 1996 PROCEDURE: HISTORICAL MELANOMA; COMMENT: 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 albuterol HFA (PROAIR HFA ; PROVENTIL HFA ; VENTOLIN HFA) 90 mcg/actuation inhaler 2 puffs, inhalation, Every 6 hours PRN calcium carbonate 1,500 mg (600 mg elemental calcium) tablet Take 600 mg by mouth 2 times daily (with meals). cholecalciferol (VITAMIN D-3) 25 mcg (1,000 unit) capsule Daily, Cholecalciferol (VITAMIN D-[address]) Take 1,000 Units by mouth. esomeprazole (NexIUM) [address] capsule Take 1 Capsule by mouth every morning (before breakfast). FLUoxetine (PROzac) 10 mg capsule TAKE 1 CAPSULE DAILY levothyroxine (SYNTHROID, LEVOTHROID) 25 mcg tablet Take 1 Tablet by mouth daily. meclizine (ANTIVERT) 12.5 mg tablet TAKE 1 TABLET BY MOUTH EVERY 12 HOURS Allergies Allergen Reactions Doxycycline Monohydrate Nausea And Vomiting Sulfa (Sulfonamide Antibiotics) Nausea And Vomiting Sulfa Drugs Sulfamethoxazole-Trimethoprim Nausea And Vomiting Bactrim [Na Atepmhfb-ijrhqoybfbisckpv-[id number]] Social History Tobacco Use Smoking status: Former Current packs/day: 0.00 Types: Cigarettes Quit date: 09/30/1979 Years since quittin.1 Smokeless tobacco: Never Substance Use Topics Alcohol use: Yes Comment: SOCIAL Drug use: Never Physical Exam: BMI 24 pain 0/10 Examination left hip, skin is intact, no rashes or lesions. No palpable masses anterior or lateral.Able to fully extend the left knee. Able to perform seated hip flexion without any difficulty and with good strength against resistance. Able to perform independent straight leg raise against gravity. No groin pain elicited with internal or external rotation at the hip, smooth ROM. Negative Stinchfield. Negative straight leg raise. No calf tenderness. Slight leg length discrepancy with right leg being slightly shorter than the left. Sensation circulation grossly intact distally. Labs: No results found for: WBC , HCT , HGBA1C , NA , K , ALB , INR No results found for: CRP , ANAS , RF , URIC , LYME Imaging: Date of Visit: 11/12/2024 Reason for visit: Left hip pain Views: A/P pelvis, A/P hip, Frog view left hip Findings: Symmetrical alignment femoral head in acetabulum. Mild narrowing through the femoral acetabular joint space. No significant osteophyte formation nor calcifications noted. No acute findings Impression: Intact hip with mild degenerative changes Assessment: 89-year-old female history of previous left groin pain, resolved after left inguinal hernia repair. Fibromyalgia, hypothyroid, hyperlipidemia, osteopenia. BMI 24. Plan: 1. Education -I reviewed my findings with the patient. She presents today with no pain through the left groin. This seems to have resolved after repair of left inguinal hernia. X-rays are benign, mild DJD however she is not symptomatic. I recommended she continue with any low impact activity to tolerance, supportive treatment such as Tylenol as needed. Return with any worsening symptoms. She verbalizes agreement and understanding with this plan. 2. Lifestyle -continue any low impact activity to tolerance. 3. Medications -none 4. Rehabilitation -none 5. Imaging/Lab work-up -none 6. Bracing -none 7. Procedures -none 8. Follow-up -none required Thank you for your referral. Cindy Zepeda APRN 175 [facility], [address] [place] [address] W: [phone] F: [phone] Cosigned by Eduardo Canchola MD at 11/12/2024 12:59 PM EST documented in this encounter Plan of Treatment Upcoming Encounters Date Type Department Care Team (Late st Contact Info) Description 01/19/2025 10:15 AM EDT Office Visit General Surgery - [place] [address] [address] Paddy Delcid MD [address] [address] 01/28/2025 11:00 AM EDT Office Visit Adult Medicine [facility] [address] [place] [address] China aBl MD [address] [place] [address] 06/07/2025 7:45 AM EDT Ancillary Procedure [facility] [address] [phone] documented as of this encounter Results * XR Hip 2-3 Views Left [...] Impression: Intact hip with mild degenerative changes us Cristal Zepeda NP IMG XR PROCEDURES Final Result documented in this encounter Visit Diagnoses Diagnosis Primary osteoarthritis of left hip- Primary Groin pain, chronic, left documented in this encounter Orders Outpatient Referral Count Last Ordered Date Fir st Ordered Date AMB REFERRAL TO ORTHOPEDIC SURGERY 2024 documented in this encounter Care Teams Family Nurse Practitioner Relationship Specialty Start Date End Date China Bal MD [address] [place] [id number] PCP - General Internal Medicine 07/16/22 documented as of this encounter
--- NOTE | 2024-11-24 21:02 | PC.NURSE ---
Reviewed discharge instructions with pt, pt verbalized understanding,no sign of distress, pt discharged home with .
== END 2024-11-24 21:04 | disposition home or self-care (01) ==
PROVIDERS: Emergency Provider Emergency Medicine; PCP Nurse Practitioner Family
DX: R55 Syncope and collapse (principal); E86.0 Dehydration; R53.1 Weakness; R06.02 Shortness of breath; I44.0 Atrioventricular block, first degree; R94.31 Abnormal electrocardiogram [ECG] [EKG]; Z79.899 Other long term (current) drug therapy; Z03.818 Encounter for observation for suspected exposure to other biological agents ruled out
CPT/HCPCS: 0241U; 36415; 70450; 71045; 80048; 80076; 81001; 82947; 83690; 83880; 84484; 85025; 93005; 99284; 99285

== ENCOUNTER → 2024-11-24 15:23 | Outpatient (BNV) | payer OTHER, SELFPAY | PROVIDERS: Emergency Provider Emergency Medicine; PCP Nurse Practitioner Family; Visit Provider Internal Medicine Cardiovascular Disease | DX: I44.0 Atrioventricular block, first degree (principal) | CPT/HCPCS: 93010 ==

== ENCOUNTER → 2024-11-24 15:48 | Outpatient (BNV) | payer OTHER, SELFPAY | PROVIDERS: Emergency Provider Emergency Medicine; PCP Nurse Practitioner Family; Visit Provider Radiology Diagnostic Radiology | DX: R55 Syncope and collapse (principal); K44.9 Diaphragmatic hernia without obstruction or gangrene | CPT/HCPCS: 70450; 71045 ==